=== PATIENT | female | born 1965 | race Caucasian/White ===

== ENCOUNTER → 2016-07-29 | Outpatient (REF) | payer OTHER | LOC: M SFHCADAM 20:24 | PROVIDERS: ATTEND Physician Assistant | DX: N39.0 Urinary tract infection, site not specified (principal) ==

== ENCOUNTER → 2016-11-20 | Outpatient (REF) | payer OTHER ==
[2016-11-24 00:06] LABS: Lyme Disease IgG/IgM Antibodie <0.91 ISR (0.00-0.90); Lyme Disease IgM Ab Quantitati <0.80 index (0.00-0.79)
== END ==
LOC: M LAB REF 16:39
PROVIDERS: ATTEND Internal Medicine
DX: M25.50 Pain in unspecified joint (principal)

== ENCOUNTER → 2019-06-13 | Outpatient (REF) | payer OTHER | LOC: M LAB REF 13:45 | PROVIDERS: ATTEND Physician Assistant Medical | DX: N39.0 Urinary tract infection, site not specified (principal) ==

== ENCOUNTER → 2021-01-20 | Outpatient (REF) | payer OTHER ==
[2021-01-20 21:39] LABS: PTH INTACT 62.6 PG/ML (18.5-88.0)
[2021-01-21 10:01] LABS: CA 125 12.1 U/ML (<30.2)
== END ==
LOC: M LAB REF 16:08
PROVIDERS: ATTEND Internal Medicine
DX: Z12.12 Encounter for screening for malignant neoplasm of rectum (principal); E83.52 Hypercalcemia

== ENCOUNTER → 2021-01-29 | Outpatient (CLI) | payer OTHER ==
--- NOTE | 2021-01-29 12:33 | REP ---
INDICATION: N95.0 POSTMENOPAUSAL BLEEDING. COMPARISON: Comparison CT abdomen and pelvis June 05, 2009.. TECHNIQUE: Transabdominal and transvaginal scanning were performed. FINDINGS: Uterine dimensions are normal at 10.3 x 5.6 x 6.0 cm. Endometrial echo is 0.4 cm thick and centrally placed. No free fluid is seen in the cul-de-sac. Visualized bladder heredia are smooth. There is a large fundal fibroid measuring 5.4 x 5.2 x 4.7 cm. There is a hypoechoic area in the cervix consistent with a 2nd small fibroid 0.8 cm in greatest diameter. A nabothian cyst is seen. The right ovary has dimensions of 2.0 x 1.1 x 2.4 cm. It's Doppler flow is normal with a resistive index of 0.64. The left ovary dimensions are normal as well at 2.9 x 1.9 x 1.5 cm. It's Doppler flow was normal with resistive index of 0.53. IMPRESSION: 5.4 cm fundal fibroid. This was visible on the previous CT study from 2008 although it has grown in the interval. There is a smaller fibroid in the lower uterine segment/cervix. Otherwise negative.. <Electronically signed by Smith Crawford > 01/29/21 [id number]
== END ==
LOC: M WHC 09:51
PROVIDERS: ATTEND Internal Medicine
DX: N95.0 Postmenopausal bleeding (principal)

== ENCOUNTER → 2021-07-19 | Outpatient (CLI) | payer OTHER ==
[~2021-07-19] MED LIST: SUMA50TA2 PO
== END ==
LOC: M LABSMTC 09:14
PROVIDERS: ATTEND Anesthesiology
DX: Z01.812 Encounter for preprocedural laboratory examination (principal); Z20.822 Contact with and (suspected) exposure to COVID-19

== ENCOUNTER → 2021-08-06 | Outpatient (REF) | payer OTHER ==
[~2021-08-06] MED LIST changes: +IBUP-1022
== END ==
LOC: M LAB REF 11:30
PROVIDERS: ATTEND Internal Medicine
DX: E83.52 Hypercalcemia (principal)

== ENCOUNTER → 2022-02-20 | Outpatient (REF) | payer OTHER | LOC: M LAB REF 12:07 | PROVIDERS: ATTEND Internal Medicine | DX: E83.52 Hypercalcemia (principal) ==

== ENCOUNTER 2022-09-19 15:28 | Emergency (ER) | payer OTHER ==
[~2022-09-19] VITALS: Ht 167.6 cm; Wt 81.0 kg
[2022-09-19 15:28] VITALS: BP 135/84
[2022-09-19] MEDS ORDERED: GABA-1171 (15:38)
[2022-09-19] MEDS ORDERED: ACETAMINOPHEN 500 MG TAB PO ONE (16:40)
[2022-09-19] MEDS ORDERED: IBUP80TA PO (18:13)
[2022-09-19] MEDS ORDERED: ACET500P3 PO (18:13)
== END 2022-09-19 18:37 | disposition home or self-care (01) ==
LOC: M ED 15:28
DX: S83.92XA Sprain of unspecified site of left knee, initial encounter (principal); W01.0XXA Fall on same level from slipping, tripping and stumbling without subsequent striking against object, initial encounter; Y92.830 Public park as the place of occurrence of the external cause; Y93.01 Activity, walking, marching and hiking; Y99.8 Other external cause status

== ENCOUNTER 2022-10-28 12:15 | Outpatient (RCR) | payer OTHER ==
[~2022-10-28 12:15] MED LIST changes: +ACET500P3 PO; +GABA-1171; +IBUP80TA PO
== END 2022-11-01 ==
LOC: M PT 12:15
PROVIDERS: ATTEND Orthopaedic Surgery
DX: M25.562 Pain in left knee (principal)

== ENCOUNTER 2022-12-01 12:54 | Outpatient (RCR) | payer OTHER | END 2022-12-02 | LOC: M PT 12:54 | PROVIDERS: ATTEND Orthopaedic Surgery | DX: M25.562 Pain in left knee (principal) ==

== ENCOUNTER 2022-12-30 13:34 | Outpatient (RCR) | payer OTHER | END 2023-01-01 | LOC: M PT 13:34 | PROVIDERS: ATTEND Orthopaedic Surgery | DX: M23.612 Other spontaneous disruption of anterior cruciate ligament of left knee (principal) ==

== ENCOUNTER → 2023-03-04 | Outpatient (RCR) | payer OTHER | LOC: M PT 02-02 08:30 | PROVIDERS: ATTEND Orthopaedic Surgery | DX: M25.562 Pain in left knee (principal); Z98.890 Other specified postprocedural states ==

== ENCOUNTER → 2023-05-04 | Outpatient (RCR) | payer OTHER | LOC: M PT 04-05 15:08 | PROVIDERS: ATTEND Orthopaedic Surgery | DX: M25.562 Pain in left knee (principal) ==

== ENCOUNTER 2023-06-02 16:00 | Outpatient (RCR) | payer OTHER | END 2023-06-03 | LOC: M PT 16:00 | PROVIDERS: ATTEND Orthopaedic Surgery | DX: M25.562 Pain in left knee (principal) ==

== ENCOUNTER 2023-06-30 08:30 | Outpatient (RCR) | payer OTHER | END 2023-07-04 | LOC: M PT 08:30 | PROVIDERS: ATTEND Orthopaedic Surgery | DX: M23.612 Other spontaneous disruption of anterior cruciate ligament of left knee (principal) ==

== ENCOUNTER → 2023-08-04 | Outpatient (RCR) | payer OTHER | LOC: M PT 07-06 14:45 | PROVIDERS: ATTEND Orthopaedic Surgery | DX: M25.562 Pain in left knee (principal) ==

== ENCOUNTER → 2023-09-02 | Outpatient (RCR) | payer OTHER | LOC: M PT 08-10 15:17 | PROVIDERS: ATTEND Orthopaedic Surgery | DX: Z47.89 Encounter for other orthopedic aftercare (principal) ==

== ENCOUNTER 2023-09-28 15:14 | Outpatient (RCR) | payer OTHER | END 2023-10-03 | LOC: M PT 15:14 | PROVIDERS: ATTEND Orthopaedic Surgery | DX: M25.562 Pain in left knee (principal) ==